=== PATIENT | male | born 1945 | race Caucasian/White ===

== ENCOUNTER → 2020-08-07 | Outpatient (CLI) | payer OTHER ==
[~2020-08-07] MED LIST: ADULT LOW DOSE81 MG PO; LEVOTHYROXINE0.05 MG PO; MULTIVITAMINS PO; PRILOSEC40 MG PO
== END ==
LOC: SJCVCIMAG 13:06 → SJCVC 13:06
PROVIDERS: ATTEND Internal Medicine Cardiovascular Disease
DX: I65.23 Occlusion and stenosis of bilateral carotid arteries (principal); R00.1 Bradycardia, unspecified; I70.298 Other atherosclerosis of native arteries of extremities, other extremity; I25.10 Atherosclerotic heart disease of native coronary artery without angina pectoris; M79.601 Pain in right arm; E78.00 Pure hypercholesterolemia, unspecified; K21.9 Gastro-esophageal reflux disease without esophagitis; Z79.899 Other long term (current) drug therapy; Z87.891 Personal history of nicotine dependence; Z85.46 Personal history of malignant neoplasm of prostate

== ENCOUNTER → 2020-08-31 | Outpatient (CLI) | payer OTHER | LOC: SJCVCIMAG 09:26 | PROVIDERS: ATTEND Internal Medicine Cardiovascular Disease | DX: I07.1 Rheumatic tricuspid insufficiency (principal); I73.9 Peripheral vascular disease, unspecified; E78.5 Hyperlipidemia, unspecified; Z79.899 Other long term (current) drug therapy; Z87.891 Personal history of nicotine dependence ==

== ENCOUNTER → 2021-09-06 | Outpatient (CLI) | payer MEDICARE | LOC: SJCVCIMAG 14:55 → SJCVC 14:55 | PROVIDERS: ATTEND Internal Medicine Cardiovascular Disease | DX: I73.9 Peripheral vascular disease, unspecified (principal); M79.602 Pain in left arm; K21.9 Gastro-esophageal reflux disease without esophagitis; E78.5 Hyperlipidemia, unspecified; I10 Essential (primary) hypertension; E03.9 Hypothyroidism, unspecified; Z87.891 Personal history of nicotine dependence; Z72.89 Other problems related to lifestyle; Z79.82 Long term (current) use of aspirin; Z79.899 Other long term (current) drug therapy ==